=== PATIENT | male | born 1975 | race Two or more races ===

== ENCOUNTER 2020-12-29 20:24 | Emergency (ER) | payer OTHER ==
[~2020-12-29] VITALS: Ht 162.6 cm; Wt 136.6 kg
--- NOTE | 2020-12-29 21:20 | NUR ---
PT PRESENTS TO THE ER FOR CHEST PAIN THAT STARTED ON THURSDAY, PT STATES HE EXPERIENCES SHARP CHEST PAIN THAT STARTS ON THE LEFT SIDE AND MOVES ACROSS TO HIS CHEST TO THE RIGHT PT ALSO EXPERIENCES SOB WHEN THE PAIN ARISES, AT BEDSIDE
[2020-12-29] MEDS ORDERED: KETOROLAC 30 MG/1 ML ONE (21:28)
[2020-12-29] MEDS ORDERED: ACETAMINOPHEN 500 MG TABLET ONE (21:28)
[2020-12-29] MEDS ORDERED: ASPIRIN 81 MG TABLET CHEW ONE (21:28)
[2020-12-29] MEDS ORDERED: ASPIRIN 81 MG TABLET CHEW PO ONE (21:30)
[2020-12-29] MEDS ORDERED: KETOROLAC 30 MG/1 ML IVPush ONE (21:30)
[2020-12-29] MEDS ORDERED: ACETAMINOPHEN 500 MG TABLET PO ONE (21:30)
[2020-12-29 22:01] LABS: BASOPHILS % (AUTO) 1 % (0-1); EOSINOPHILS % (AUTO) 4 % (1-7); LYMPHOCYTES % (AUTO) 33 % (22-44); MEAN CORPUSCULAR HEMOGLOBIN 29.9 pg (27.5-34.5); MEAN CORPUSCULAR HGB CONC 34.2 g/dL (33.2-36.2); MEAN PLATELET VOLUME 8.4 fL (7.4-10.4); MONOCYTES % (AUTO) 11 % (2-9); NEUTROPHILS % (AUTO) 52 % (42-75); PLATELET COUNT 248 x10^3/uL (130-400); RED BLOOD COUNT 5.53 x10^6/uL (4.38-5.82); RED CELL DISTRIBUTION WIDTH 14.6 % (9.4-14.8)
[2020-12-29 22:06] LABS: ALBUMIN 3.2 g/dL (3.4-5.0); ANION GAP 5 mmol/L (5-15); CALCIUM 8.6 mg/dL (8.5-10.1); CHLORIDE 105 mmol/L (98-107)
[2020-12-29 22:12] LABS: ALANINE AMINOTRANSFERASE 41 U/L (12-78); ALKALINE PHOSPHATASE 66 U/L (45-117); BILIRUBIN,TOTAL 0.3 mg/dL (0.2-1.0); CREATININE 0.83 mg/dL (0.7-1.3); TOTAL PROTEIN 7.4 g/dL (6.4-8.2); TROPONIN I < 0.015 ng/mL (0.000-0.045)
[2020-12-29] MEDS ORDERED: MORPHINE SULFATE 4 MG/ML, 1ML ONE (22:13)
[2020-12-29] MEDS ORDERED: ONDANSETRON 2MG/ML, 2ML ONE (22:13)
[2020-12-29] MEDS ORDERED: ONDANSETRON 2MG/ML, 2ML IVPush ONE (22:30)
[2020-12-29] MEDS ORDERED: MORPHINE SULFATE 4 MG/ML, 1ML IVPush PRN (22:30)
[2020-12-29 23:44] VITALS: BP 137/78
== END 2020-12-30 00:02 | disposition home or self-care (01) ==
LOC: ED 22:23
DX: R07.89 Other chest pain (principal); I10 Essential (primary) hypertension; F17.210 Nicotine dependence, cigarettes, uncomplicated
CPT/HCPCS: 36415; 71045; 80053; 83690; 83880; 84484; 85025; 85379; 93005; 96374; 96375; 99285; 99406; J1885; J2270; J2405